=== PATIENT | male | born 1955 | race American Indian/Alaskan Native ===

== ENCOUNTER → 2020-08-13 09:34 | Outpatient (CLI) | payer OTHER, SELFPAY ==
[2020-08-13 11:21] LABS: COVID19 -Nasal RAPID Negative (Negative)
== END ==
PROVIDERS: Visit Provider Surgery
DX: Z20.822 Contact with and (suspected) exposure to COVID-19 (principal); Z01.812 Encounter for preprocedural laboratory examination
CPT/HCPCS: 87635; C9803

== ENCOUNTER 2020-08-14 07:21 | Day surgery (SDC) | payer OTHER, SELFPAY ==
--- NOTE | 2020-08-14 | PATH_ITS ---
[facility] Accession Number: [id number] . 01 Material submitted: . rectum - RECTAL BIOPSY . 02 Diagnosis: Rectum, Biopsy: Rectal mucosa with no diagnostic abnormality. Negative for active, chronic and microscopic colitis. Negative for dysplasia and malignancy. MRV 08/19/2020 1311 Local . 02 Electronically signed: . Kelly Lang MD, Pathologist NPI- [id number] . 01 Gross description: . RECTAL BIOPSY: Received in formalin are 2 fragment(s) of ambriz, soft tissue measuring 0.1 x 0.1 x 0.1 cm in aggregate submitted entirely in 1 cassette(s) /EL 08/17/2020 1900 Local . 02 Pathologist provided ICD-10: Z12.11 . 02 CPT . 512287 Performed at: 01 [facility] [address] [id number] MD Wallace Parish MD Phone: [phone] Performed at: 02 [facility] [address] [place], [place] [id number] MD Kelly Lang MD Phone: [phone]
[2020-08-14] MEDS: SODIUM CHLORIDE 0.9% 1,000 ML 84 ML IV (07:39)
[2020-08-14 07:53] VITALS: BP 113/80; PULSE 78; RESP 14; TEMP 36.1; O2SAT 96; BMI 31.6
--- NOTE | 2020-08-14 08:28 | P.HP_ITS ---
History of Present Illness History of Present Illness Date Patient Seen: 08/14/20 Time Patient Seen: 08:28 Chief complaint: [facility] Narrative: This is a 65-year-old man with history of colon polyps, and a rectal carcinoid. He has had multiple colonoscopies in the past the most recent of which he was found to have no recurrence of a carcinoid, but several tubular adenomas. This most recent colonoscopy was in 2017, and he was recommended to have a follow-up colonoscopy in 3 years. He denies any symptoms of melena, hematochezia, unexplained abdominal pain, unexplained weight loss. He says he is otherwise in good health and has had no problems with his heart, and has good exercise tolerance. ROS Thirteen system review is otherwise negative other than as mentioned below and in HPI. PE: GENERAL: Well groomed and cooperative. Appears stated age. Answers questions promptly and appropriately. Vital signs noted. HENT: Normocephalic, atraumatic. Hearing intact. EYES: Conjunctiva pink, sclera white, no periorbital swelling. CARDIOVASCULAR: Regular rate. No pedal edema. RESPIRATORY: Non-tachypneic, breathing comfortably on room air. GASTROINTESTINAL: Abdomen soft and non-distended GENITALURINARY: No flank tenderness. MUSCULOSKELETAL: Equal tone and mass bilaterally. SKIN: Warm, dry, soft, appropriate color for ethnicity. No other lesions, rashes, or wounds. NEURO: Alert and Oriented X 3. No gross sensory deficits, or cognitive issues. PSYCH: Appropriate affect and mood. Patient History Family & Social History Social History: household members spouse Tobacco & Substance use: Tobacco type cigars Smoking Status Former smoker alcohol intake former Substance Use Type does not use Meds Home Medications and Allergies Home Medications Medication Instructions Recorded Confirmed Type loratadine [Claritin Liqui-Gel] 10 mg PO QDAYP PRN #0 12/01/16 08/14/20 History brimonidine-timolol [Combigan] 1 drp EYE-BOTH BID 08/14/20 08/14/20 History latanoprost 1 drp EYE-BOTH BEDTIME 08/14/20 08/14/20 History netarsudil [Rhopressa] 1 drp EYE-BOTH BEDTIME 08/14/20 08/14/20 History Allergies Allergy/AdvReac Type Severity Reaction Status Date / Time No Known Drug Allergies Allergy Verified 08/14/20 07:47 Exam Vital Signs (past 8 hours): - 08/14/20 07:53 Temperature 97.0 F L Pulse Rate 78 Respiratory Rate 14 Blood Pressure 113/80 Pulse Oximetry 96 Oxygen Delivery Method Room Air Assessment & Plan Assessment and plan (1) Personal history of colonic polyps: Status: Acute (2) Tubular adenoma of colon: Status: Acute (3) History of malignant carcinoid tumor of rectum: Status: Acute Assessment & Plan narrative: 15 minutes were spent reviewing patient's primary care notes and records, 12 minutes were spent reviewing patient's prior colonoscopy reports. 10 minutes were spent discussing the patient's history and the expectations for this procedure. All of his questions were answered, and he would like to proceed. Risks and benefits of screening colonoscopy and possible polypectomy were discussed with the patient including risk of bleeding, perforation, need for additional procedures, risks of anesthesia. The patient desires to proceed with the colonoscopy procedure. COVID-19 COVID-19 status: Negative Result date/Date tested (Pos, Neg/Pending): 08/13/20 Time Spent With Patient Time with patient: Greater than 35 minutes Quality VTE Deep Vein Thrombosis/Pulmonary Embolism Present on Admission: No
[2020-08-14] MEDS: fentaNYL 250 MCG/5 ML INJ IV (08:31)
--- NOTE | 2020-08-14 08:31 | P.OP.ENDO_ITS ---
Operative Date/Time/Diagnoses Date of procedure: 08/14/20 Time of procedure: 08:31 Pre-op diagnosis: History of colon polyps and rectal carcinoid Post-op diagnosis: same (Normal appearing colon, no appearance of regrowth at the rectal carcinoid surgical scar) Procedure & Clinicians Study performed: Colonoscopy Procedural sedation performed by the endoscopist Biopsy of rectal scar Indications: History of colon polyps and rectal carcinoid Surgeon: Malinda Ramirez Procedure Notes SCOAP/Timeout: Performed Procedure in detail: The patient was brought to the room and placed in left lateral decubitus position with all bony prominences padded. A time-out was performed and then the patient was given procedural sedation starting with 4 mg of Versed and 100 mcg of fentanyl. Vitals were monitored throughout the procedure and remained stable. Once adequately sedated, the procedure was begun. A rectal exam was performed revealingno abnormalities]. The colonoscope was then introduced to the rectum and advanced to the cecum in the usual fashion. The cecum was identified by the appendiceal orifice, the mucosal tri- fold, and the ileocecal valve. The scope was then retracted while rotating side to side and examining each mucosal fold. The entire colon appeared normal. The scar and tattoo from his prior rectal carcinoid was seen, and biopsied. This area appeared consistent with just normal post polypectomy scar. At the conclusion of the procedure retroflexion was performed and small grade 1-2 internal hemorrhoids without stigmata of bleeding were seen. The scope was then withdrawn from the rectum the procedure was concluded. The patient tolerated the procedure well and was transferred to the PACU in stable condition. Scope withdrawal time: 12 Sedation minutes: 26 Specimen(s): other (Biopsy of rectal scar) Complications: none Impression: Normal appearing colonoscopy, no new polyps, no visible the growth at rectal carcinoid polypectomy site Post-procedure Recommendations: Colonscopy in 5 years (So long as rectal scar biopsy shows no regrowth) Follow up: as needed Disposition: PACU
[2020-08-14] MEDS: MIDAZOLAM 5 MG/5 ML VIAL IV (08:33)
[2020-08-14 09:03] VITALS: BP 109/74; PULSE 63; RESP 10; TEMP 36.2; O2SAT 94
[2020-08-14 09:08] VITALS: BP 101/72; PULSE 65; RESP 11; O2SAT 95
[2020-08-14 09:15] VITALS: BP 97/72; PULSE 64; RESP 14; O2SAT 95
[2020-08-14 09:22] VITALS: BP 113/80; PULSE 65; RESP 13; TEMP 36.9; O2SAT 97
[2020-08-14 09:32] VITALS: BP 123/84; PULSE 70; RESP 16; TEMP 36.3; O2SAT 98
== END 2020-08-14 09:44 | disposition home or self-care (01) ==
PROVIDERS: Referring Provider Surgery; Visit Provider Surgery
PROC: 0DJD8ZZ Inspection of Lower Intestinal Tract, Via Natural or Artificial Opening Endoscopic (ICD-10-PCS; CPT 45378; principal; 2020-08-14 08:30)
DX: Z12.11 Encounter for screening for malignant neoplasm of colon (principal); Z85.040 Personal history of malignant carcinoid tumor of rectum; Z86.010 Personal history of colon polyps; K64.0 First degree hemorrhoids
CPT/HCPCS: 45380; 99152; J2250; J3010

== ENCOUNTER → 2023-05-18 07:11 | Outpatient (CLI) | payer OTHER, SELFPAY | PROVIDERS: PCP Family Medicine; Referring Provider Physician Assistant; Visit Provider Physician Assistant | DX: R06.09 Other forms of dyspnea (principal); Z87.891 Personal history of nicotine dependence | CPT/HCPCS: 94060; 94726; 94729 ==

== ENCOUNTER → 2023-09-14 13:46 | Outpatient (CLI) | payer OTHER, SELFPAY ==
--- NOTE | 2023-09-14 13:47 | DI.ECHO.S_ITS ---
[place] [facility] +---------+ : : [address] : : : : [id number] : : : : Phone: [phone]+ Echocardiogram Report + + :Name: ENRIKE BAILEY Study Date: 09/14/2023 Height: 65 in : :[facility] ReadingLocation: Weight: 197 lb : : Gender: Male BSA: 2.0 m2 : :: 1955 Age: 68 yrs BP: 128/90 mmHg: :Reason For Study: DYSPNEA : :Ordering Physician: EL MCGHEE Performed By: Esha Ballard : :Referring: EL MCGHEE : + + Interpretation Summary The ejection fraction is estimated to be 55-60%. Diastolic parameters suggest probable normal left ventricular diastolic function and normal filling pressures. The right ventricle is normal in size and function. No significant valvular abnormalities. Pulmonary artery pressures cannot be estimated because of the lack of a measurable TR jet velocity. Procedure: A two-dimensional transthoracic echocardiogram with color flow and Doppler was performed. The study quality was technically adequate. There is no prior echocardiogram noted for this patient. The patient was in sinus rhythm with heart rates between 60-74 bpm during the exam. Left Ventricle: The left ventricle is normal in size and wall thickness. The ejection fraction is estimated to be 55-60%. Diastolic parameters suggest probable normal left ventricular diastolic function and normal filling pressures. Right Ventricle: The right ventricle is normal in size and function. Atria: The left atrial size is normal. Right atrial size is normal. There is no Doppler evidence for an interatrial shunt. Mitral Valve: The mitral valve is normal in structure and function. There is no mitral regurgitation noted. Aortic Valve: The aortic valve is trileaflet. The aortic valve opens well. There is no aortic valve stenosis. No aortic regurgitation is present. Tricuspid Valve: The tricuspid valve is normal in structure and function. There is a trace or physiologic amount of tricuspid regurgitation. Pulmonary artery pressures cannot be estimated because of the lack of a measurable TR jet velocity. Pulmonic Valve: The pulmonic valve is not well seen, but is grossly normal. There is mild pulmonic regurgitation. Great Vessels: The aortic root is mildly dilated. The dimensions of the ascending aorta are normal. The inferior vena cava was not well visualized. Pericardium/ Pleura There is no pericardial effusion. There is no pleural effusion. MMode/2D Measurements & Calculations LVIDd: 4.0 cm LVOT diam: 2.1 cm LVIDs: 2.5 cm Ao root diam: 4.1 cm FS: 37.6 % asc Aorta Diam: 3.5 cm IVSd: 0.83 cm Ao Arch Diam (Prox Trans): 3.2 cm LVPWd: 0.98 cm LV fox. diameter/BSA (cm/m^2): 2.1 LV sys. diameter/BSA (cm/m^2): 1.3 LA A2 area: 20.8 cm2 RA long axis: 5.6 cm LA A4 area: 16.1 cm2 RA area: 17.3 cm2 LA length (vol): 5.2 cm RA vol: 45.7 ml LA vol: 54.6 ml RA : 23.2 ml/m2 LA vol index: 27.8 ml/m2 RVD1 (basal): 3.6 cm RVD2 (mid): 3.3 cm TAPSE: 1.9 cm Doppler Measurements & Calculations Ao V2 max: 122.8 cm/sec LVOT Max Ravi: 85.6 cm/sec Ao V2 mean: 87.0 cm/sec LV V1 max P.9 mmHg Ao max P.0 mmHg LV V1 VTI: 19.7 cm Ao mean P.3 mmHg SHWETA(I,D): 2.6 cm2 Ao V2 VTI: 26.1 cm SHWETA(V,D): 2.4 cm2 sev ratio: 0.75 SHWETA indexed to BSA (cm^2/m^2): 1.3 MV E max ravi: 62.8 cm/sec PA V2 max: 80.4 cm/sec MV A max ravi: 78.0 cm/sec PA V2 mean: 54.1 cm/sec MV E/A: 0.81 PA mean P.3 mmHg Med Peak E' Ravi: 6.1 cm/sec PA pr(Accel): 15.6 mmHg E/E' med: 10.2 Lat Peak E' Ravi: 8.2 cm/sec E/E' lat: 7.6 E/e' average: 8.9 MV dec time: 0.23 sec SV(LVOT): 67.3 ml Reading Physician:07:38 PM
== END ==
PROVIDERS: PCP Family Medicine; Referring Provider Nurse Practitioner Family; Visit Provider Nurse Practitioner Family
DX: I37.1 Nonrheumatic pulmonary valve insufficiency (principal); I77.810 Thoracic aortic ectasia; R06.09 Other forms of dyspnea
CPT/HCPCS: 93306